=== PATIENT | female | born 1975 | race Caucasian/White ===

== ENCOUNTER → 2016-06-10 | Outpatient (CLI) | payer BC | END | disposition home or self-care (01) | LOC: C.PAPS 14:35 | PROVIDERS: ATTEND Obstetrics & Gynecology | DX: Z01.419 Encounter for gynecological examination (general) (routine) without abnormal findings (principal) ==

== ENCOUNTER → 2016-08-20 | Outpatient (CLI) | payer BC ==
--- NOTE | 2016-08-20 08:36 | DIAGNOSTIC IMAGING REPORT ---
ABDOMINAL ULTRASOUND, RIGHT UPPER QUADRANT HISTORY: EPIGASTRIC PAIN,HEARTBURN. COMPARISON: None. FINDINGS: Pancreas: The pancreatic head and tail are obscured by overlying bowel gas. The remaining portions of the pancreas are within normal limits. Liver: The liver is echogenic consistent with fatty change. Gallbladder: No gallbladder wall thickening. No gallstones. CBD: 5 mm. Right kidney: No hydronephrosis. IMPRESSION: 1. Normal gallbladder. No gallstones. 2. Hepatic steatosis. Electronically signed by: Henry Mcdaniel M.D. 08/20/2016 8:35 AM Dictated Date/Time: 08/20/2016 8:34 AM
== END | disposition home or self-care (01) ==
LOC: C.ULTR 08:03
PROVIDERS: ATTEND Family Medicine
DX: R10.13 Epigastric pain (principal)

== ENCOUNTER → 2016-12-15 | Outpatient (CLI) | payer BC ==
--- NOTE | 2016-12-15 09:09 | DIAGNOSTIC IMAGING REPORT ---
LEFT FOOT MIN 3 VIEWS ROUTINE CLINICAL HISTORY: Left foot pain. Trauma. COMPARISON: None. DISCUSSION: No acute fractures or dislocations are visualized. There are mild osteophytic changes present at the level the first metatarsal phalangeal joint. IMPRESSION: No acute fractures or dislocations. Electronically signed by: Bebeto Mancuso M.D. 12/15/2016 9:08 AM Dictated Date/Time: 12/15/2016 9:07 AM
== END | disposition home or self-care (01) ==
LOC: C.RAD1850 08:37
PROVIDERS: ATTEND Student in an Organized Health Care Education/Training Program
DX: M79.672 Pain in left foot (principal)

== ENCOUNTER → 2017-06-16 | Outpatient (CLI) | payer OTHER ==
--- NOTE | 2017-06-16 16:19 | DIAGNOSTIC IMAGING REPORT ---
BILATERAL LOWER EXTREMITY VENOUS DOPPLER HISTORY: BILATERAL LEG PAIN AND SWELLING R/O DVT COMPARISON STUDY: None. FINDINGS: There is normal compressibility, flow, and augmentation within the bilateral lower extremity deep venous systems. IMPRESSION: No DVT within the right or left lower extremity. Electronically signed by: Henry Mcdaniel M.D. 06/16/2017 4:17 PM Dictated Date/Time: 06/16/2017 4:17 PM
== END | disposition home or self-care (01) ==
LOC: C.ULTR 15:32
PROVIDERS: ATTEND Nurse Practitioner Family
DX: M79.661 Pain in right lower leg (principal)